=== PATIENT | female | born 1935 | race Caucasian/White ===

== ENCOUNTER → 2016-12-04 | Outpatient (CLI) | payer MEDICARE, OTHER ==
[~2016-12-04] MED LIST: BISO1TAB39 PO; CALC-794 PO; DEXL60CA5 PO; ENAL5TAB PO; LEVO75TA57 PO; MULT-1029 PO; NF-ESOM40C PO
--- NOTE | 2016-12-04 18:58 | Diagnostic Imaging Report ---
Bilateral screening mammogram 2D views with tomosynthesis The current study was also evaluated with a Computer Aided Detection (CAD) system. INDICATION: Screening. No current complaints stated on the questionnaire. COMPARISON: 11/13/2015. FINDINGS: The breasts are composed of scattered fibroglandular densities. There are occasional benign-appearing calcifications seen. Vascular calcifications are also noted. Allowing for technique and positional differences, no suspicious change is seen. IMPRESSION: No significant change. ACR BI-RADS Category 2: Benign findings. Result letter will be mailed to the patient. Note: At least 10% of breast cancer is not imaged by mammography. Dictated by: Dictated on workstation # [id number]
== END ==
LOC: RAD 08:48
PROVIDERS: ATTEND Nurse Practitioner Family
DX: Z12.31 Encounter for screening mammogram for malignant neoplasm of breast (principal)
CPT/HCPCS: 77067

== ENCOUNTER → 2018-01-28 | Outpatient (CLI) | payer MEDICARE, OTHER ==
--- NOTE | 2018-01-28 10:46 | Diagnostic Imaging Report ---
Indication: Routine screening. Comparison is made with prior mammograms from 12/04/2016 and 11/13/2015. 2-D and 3-D bilateral screening mammography was performed with CAD. Scattered fibroglandular densities are identified bilaterally. The parenchymal pattern is stable. No mass or malignant-appearing microcalcifications are seen. Axillae are unremarkable. Impression: BI-RADS category 1. No mammographic features suspicious for malignancy are identified. ACR BI-RADS Category 1: Negative. Result letter will be mailed to the patient. Note: At least 10% of breast cancer is not imaged by mammography. Dictated by: Dictated on workstation # [id number]
== END ==
LOC: RAD 07:17
PROVIDERS: ATTEND Family Medicine
DX: Z12.31 Encounter for screening mammogram for malignant neoplasm of breast (principal)
CPT/HCPCS: 77067

== ENCOUNTER → 2019-02-04 | Outpatient (CLI) | payer MEDICARE, OTHER ==
--- NOTE | 2019-02-04 08:46 | Diagnostic Imaging Report ---
INDICATION: Routine screening. Comparison is made with prior mammogram 01/28/2018 and 12/04/2016. 2-D and 3-D bilateral screening mammography was performed with CAD. The current study was also evaluated with a Computer Aided Detection (CAD) system. 3-D tomosynthesis was also performed and reviewed. Scattered fibroglandular densities are identified bilaterally. The parenchymal pattern is stable. No mass or malignant appearing microcalcifications are seen. Axillae are unremarkable. IMPRESSION: No mammographic features suspicious for malignancy are identified. ACR BI-RADS Category 1: Negative. Result letter will be mailed to the patient. Note: At least 10% of breast cancer is not imaged by mammography. Dictated by: Dictated on workstation # [id number]
== END ==
LOC: RAD 07:43
PROVIDERS: ATTEND Nurse Practitioner Family
DX: Z12.31 Encounter for screening mammogram for malignant neoplasm of breast (principal)
CPT/HCPCS: 77067

== ENCOUNTER → 2019-07-09 | Outpatient (CLI) | payer MEDICARE, OTHER ==
--- NOTE | 2019-07-09 10:13 | Diagnostic Imaging Report ---
INDICATION: Fall on outstretched hand with right hand and wrist pain. Time of exam: 1008 AM 3 views of the right hand were obtained. There is generalized demineralization. The metacarpals and phalanges appear to be intact. No fractures are seen. IMPRESSION: Demineralization. No acute fracture is identified. Dictated by: Dictated on workstation # [id number]
--- NOTE | 2019-07-09 10:16 | Diagnostic Imaging Report ---
INDICATION: Fall with right hand and wrist injury. Time of exam: 10:10 AM 3 views of the right wrist were obtained. There is demineralization. Distal radius and ulna appear to be intact. Triscaphe and 1st CMC joint degenerative changes are noted. There is some mild chondrocalcinosis of the triangular fibrocartilage complex. No fractures are seen. IMPRESSION: Chronic changes. No acute bony abnormality is detected. Dictated by: Dictated on workstation # [id number]
== END ==
LOC: RAD 09:52
PROVIDERS: ATTEND Nurse Practitioner Family
DX: M79.641 Pain in right hand (principal); M25.531 Pain in right wrist
CPT/HCPCS: 73110; 73130

== ENCOUNTER → 2020-02-08 | Outpatient (CLI) | payer MEDICARE, OTHER ==
--- NOTE | 2020-02-08 09:47 | Diagnostic Imaging Report ---
INDICATION: Screening. The current study was also evaluated with a Computer Aided Detection (CAD) system. 3-D Tomographic imaging was also performed. Comparison made with prior examination from 02/04/2019, 01/28/2018 and 12/04/2016 FINDINGS: There are scattered fibroglandular densities bilaterally. There are vascular and benign type calcifications. There is no dominant mass, spiculated lesion or suspicious calcification is identified. Skin, nipples and axilla are unremarkable IMPRESSION: Cat-2 benign. ACR BI-RADS Category 2: Benign findings. Result letter will be mailed to the patient. Note: At least 10% of breast cancer is not imaged by mammography. Dictated by: Dictated on workstation # [id number]
--- NOTE | 2020-02-08 10:36 | Diagnostic Imaging Report ---
INDICATION: Postmenopausal screening for osteoporosis COMPARISON: 10/28/2013 FINDINGS: AP Spine L1-L4: [BMD (g/cm2): 1.080] [T-Score: -1.0] [Z-Score: 0.2] [BMD Previous: 1.099] [BMD % Change: -1.7] LT Hip Neck: [BMD (g/cm2): 0.732] [T-Score: -2.2] [Z-Score: -0.4] LT Hip Total: [BMD (g/cm2):0.809] [T-Score:-1.6] [Z-Score: 0.1] [BMD Previous: 0.955] [BMD % Change: -15.3] RT Hip Neck: [BMD (g/cm2):0.631] [T-Score:-2.9] [Z-Score:-1.1] RT Hip Total: [BMD (g/cm2):0.732] [T-score:-2.2] [Z-Score:-0.5] [BMD Previous:0.807] [BMD % Change:-9.3] *Indicates significant change from prior examination based on 95% confidence level. World Health Organization criteria for BMD interpretation classify patients as Normal (T-score at or above -1.0), Osteopenic (T-score between -1.0 and -2.5) or Osteoporotic (T-score at or below -2.5). LIMITATIONS AND MODIFICATION: None. FRACTURE RISK (FRAX SCORE): The ten year probability of (%): Major Osteoporotic Fracture: [21.5] Hip Fracture: [8.4] IMPRESSION: 1. Osteopenia (Low bone mass). 2. No significant change in bone mineral density since prior examination. 3. See below National Osteoporosis Foundation guidelines on when to potentially initiate pharmacologic therapy. Based on the National Osteoporosis Foundation Guidelines, pharmacologic treatment should be initiated in any of the following, unless clinical conditions suggest otherwise: * Any patient with prior fragility fracture of the hip or vertebrae. A spine fracture indicates 5X risk for subsequent spine fracture and 2X risk for subsequent hip fracture. * Osteoporosis (T-score <-2.5). * Postmenopausal women and men age 50 and older with low bone mass/osteopenia (T-score between -1.0 and -2.5) by DXA and 10-year major osteoporotic fracture greater than 20% or a 10-year probability of hip fracture greater than 3%. These fracture risks are supplied above in the FRAX score, if applicable. * Clinician judgement and/or patient preferences may indicate treatment for people with 10-year fracture probabilities above or below these levels. Dictated by: Dictated on workstation # [id number]
== END ==
LOC: RAD 08:30
PROVIDERS: ATTEND Family Medicine
DX: Z12.31 Encounter for screening mammogram for malignant neoplasm of breast (principal); Z13.820 Encounter for screening for osteoporosis; M85.80 Other specified disorders of bone density and structure, unspecified site
CPT/HCPCS: 77063; 77067; 77080

== ENCOUNTER → 2020-02-15 | Outpatient (CLI) | payer MEDICARE, OTHER ==
--- NOTE | 2020-02-15 10:07 | Diagnostic Imaging Report ---
PROCEDURE: US right lower extremity venous. TECHNIQUE: Multiple real-time grayscale images were obtained over the right lower extremity in various projections. Additional spectral analysis and color Doppler duplex images were also obtained. INDICATION: Superficial thrombosis. FINDINGS: Right lower extremity deep venous system shows normal compressibility with normal response to augmentation and Valsalva. There is thrombosis of the greater saphenous vein throughout the extent of the right thigh. Cystic-appearing structure in the right groin is noted measuring 3.3 x 1.5 x 2.5 cm. No internal blood flow is present. IMPRESSION: 1. No evidence of right lower extremity DVT. 2. Findings consistent with superficial thrombophlebitis involving the greater saphenous vein in the right thigh. 3. Fluid-containing mass in the right groin. This may represent seroma. No other abnormalities are seen. Dictated by: Dictated on workstation # [id number]
== END ==
LOC: RAD 09:10
PROVIDERS: ATTEND Nurse Practitioner Family
DX: I82.403 Acute embolism and thrombosis of unspecified deep veins of lower extremity, bilateral (principal)

== ENCOUNTER → 2021-02-09 | Outpatient (CLI) | payer MEDICARE, OTHER ==
--- NOTE | 2021-02-12 13:56 | Diagnostic Imaging Report ---
EXAMINATION: Digital mammogram bilateral screening with CAD. INDICATION: Screening. COMPARISON: This study was compared to the prior exams of 02/08/2020, 02/04/2019, and 01/28/2018. PERSONAL HISTORY: At this time, there are no current complaints. FINDINGS: There are scattered fibroglandular densities in both breasts which could obscure a lesion. Overall, there does not appear to have been any significant change when compared to the prior exam. No primary or secondary sign of malignancy is noted. IMPRESSION: There is no radiographic evidence for malignancy. ACR BI-RADS Category 1: Negative. Result letter will be mailed to the patient. Note: At least 10% of breast cancer is not imaged by mammography. Dictated by: Dictated on workstation # [id number]
== END ==
LOC: RAD 09:00
PROVIDERS: ATTEND Family Medicine
DX: Z12.31 Encounter for screening mammogram for malignant neoplasm of breast (principal)
CPT/HCPCS: 77063; 77067

== ENCOUNTER → 2022-08-27 | Outpatient (CLI) | payer MEDICARE, OTHER ==
--- NOTE | 2022-08-27 09:38 | Diagnostic Imaging Report ---
INDICATION: Postmenopausal state COMPARISON: 02/08/2020 FINDINGS: AP Spine L1-L4: [BMD (g/cm2): 1.046] [T-Score: -1.3] [Z-Score: 0.2] [BMD Previous: 1.058] [BMD % Change: -1.1] LT Hip Neck: [BMD (g/cm2): 0.724] [T-Score: -2.3] [Z-Score: -0.2] LT Hip Total: [BMD (g/cm2):0.806] [T-Score:-1.6] [Z-Score: 0.4] [BMD Previous: 0.809] [BMD % Change: -0.4] RT Hip Neck: [BMD (g/cm2):0.652] [T-Score:-2.8] [Z-Score:-0.7] RT Hip Total: [BMD (g/cm2):0.769] [T-score:-1.9] [Z-Score:0.1] [BMD Previous:0.732] [BMD % Change:5.1*] *Indicates significant change from prior examination based on 95% confidence level. World Health Organization criteria for BMD interpretation classify patients as Normal (T-score at or above -1.0), Osteopenic (T-score between -1.0 and -2.5) or Osteoporotic (T-score at or below -2.5). LIMITATIONS AND MODIFICATION: None. FRACTURE RISK (FRAX SCORE): The ten year probability of (%): Major Osteoporotic Fracture: [19.9] Hip Fracture: [7.4] IMPRESSION: 1. Osteopenia (Low bone mass). 2. Bone mineral density within the right hip has significantly increased since the prior examination. Bone mineral density within the lumbar spine has not significantly changed from prior exam. 3. See below National Osteoporosis Foundation guidelines on when to potentially initiate pharmacologic therapy. Based on the National Osteoporosis Foundation Guidelines, pharmacologic treatment should be initiated in any of the following, unless clinical conditions suggest otherwise: * Any patient with prior fragility fracture of the hip or vertebrae. A spine fracture indicates 5X risk for subsequent spine fracture and 2X risk for subsequent hip fracture. * Osteoporosis (T-score <-2.5). * Postmenopausal women and men age 50 and older with low bone mass/osteopenia (T-score between -1.0 and -2.5) by DXA and 10-year major osteoporotic fracture greater than 20% or a 10-year probability of hip fracture greater than 3%. These fracture risks are supplied above in the FRAX score, if applicable. * Clinician judgement and/or patient preferences may indicate treatment for people with 10-year fracture probabilities above or below these levels. Dictated by: Dictated on workstation # [id number]
== END ==
LOC: RAD 08:29
PROVIDERS: ATTEND Family Medicine
DX: M85.80 Other specified disorders of bone density and structure, unspecified site (principal); M81.0 Age-related osteoporosis without current pathological fracture
CPT/HCPCS: 77080